=== PATIENT | male | born 1965 | race Hispanic/Latino ===

== ENCOUNTER 2020-08-04 06:35 | Emergency (ER) | payer BC ==
[~2020-08-04] VITALS: Ht 162.6 cm; Wt 2.2 kg
[~2020-08-04 06:35] MED LIST: AMLO-257 PO; LISI10TA24 PO
[2020-08-04 06:42] VITALS: BP 162/110
[2020-08-04 08:03] VITALS: BP 145/98
[2020-08-04] MEDS ORDERED: KETOROLAC 60 MG VIAL (30MG/ML) IM SCH (08:31)
[2020-08-04] MEDS ORDERED: LIDOCAINE 5% TOPICAL PATCH TP SCH (08:32)
[2020-08-04] MEDS ORDERED: ORPHENADRINE CITRATE 30 MG/ML ML IM SCH (08:32)
[2020-08-04] MEDS ORDERED: CYCL10TA7 PO (09:32)
[2020-08-04 10:01] VITALS: BP 144/91
== END 2020-08-04 09:49 | disposition home or self-care (01) ==
LOC: EDH 06:55
DX: M54.41 Lumbago with sciatica, right side (principal); G89.29 Other chronic pain; I10 Essential (primary) hypertension; Z79.899 Other long term (current) drug therapy; Z79.1 Long term (current) use of non-steroidal anti-inflammatories (NSAID)
CPT/HCPCS: 96372 ×2; 99284; J1885; J2360

== ENCOUNTER → 2021-04-24 | Outpatient (CLI) | payer BC ==
[~2021-04-24] MED LIST changes: +CYCL-309 PO; +DIATR MEGLU/DIATRIZOATE SODIUM 30 ML BOTTLE ONE
== END | disposition home or self-care (01) ==
LOC: RAH 12:22
PROVIDERS: ATTEND Internal Medicine
DX: K94.20 Gastrostomy complication, unspecified (principal)
CPT/HCPCS: 74018; Q9963

== ENCOUNTER → 2024-06-16 | Outpatient (CLI) | payer OTHER ==
[~2024-06-16] MED LIST changes: -DIATR MEGLU/DIATRIZOATE SODIUM 30 ML BOTTLE ONE
== END | disposition home or self-care (01) ==
LOC: SHCH 13:27
PROVIDERS: ATTEND Student in an Organized Health Care Education/Training Program
DX: I11.9 Hypertensive heart disease without heart failure (principal); E78.5 Hyperlipidemia, unspecified; I25.83 Coronary atherosclerosis due to lipid rich plaque; I69.993 Ataxia following unspecified cerebrovascular disease
CPT/HCPCS: 93306